=== PATIENT | female | born 1965 | race Caucasian/White ===

== ENCOUNTER 2024-12-06 12:42 | Inpatient (IN) | payer OTHER ==
[~2024-12-06] VITALS: Ht 157.5 cm; Wt 99.7 kg
[2024-12-06 01:00] VITALS: BP 122/70; PULSE 82; RESP 18; TEMP 98; O2SAT 96
--- NOTE | 2024-12-06 12:53 | ED.PDOC ---
HPI Comments 59 year old female MISTI presents to the ED with chief complaint of chest pain. EMS reports that the patient had started to feel some weakness at the store earlier today, so she had went home. EMS relays that once the patient arrived home, she began to experience sharp, intermittent, 10/10 chest pains with associated, shakiness, nausea, and vomiting. Patient states that she visited [facility] urgent [facility] for evaluation of her chest pain and that is when they called 911 to have the patient taken to the ED. EMS notes patient was at a HR of 138 on their EKG, BP was 106/83, and 98% O2 saturation on room air. Patient denies any SOB, dizziness, headache, numbness, blurred vision, or abdominal pain at this time. Time Seen by MD: 12:47 Reviewed Notes: Nurses Notes, Program Production Specialist Notes, Medications, Allergies Allergies: Coded Allergies: NO KNOWN ALLERGIES (Unverified , 12/06/24) Information Source: Patient, Emergency Med Personnel Mode of Arrival: EMS Severity: Moderate Timing: Hours Duration: Intermittent Prehospital treatment: 12 Lead EKG Location: Substernal Radiation: No Radiation Quality: Sharp Onset: At Rest Cardiac Risk Factors: Hyperlipidemia, HTN, Diabetes PE Risk Factors: None History of: None Associated Signs and Symptoms: N/V Past Medical History PAST MEDICAL HISTORY: DM, High Lipids, HTN Surgical History: Tonsillectomy 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: Denies all 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 ATTENDANT Hx Family History Family History: Reviewed,noncontributory to illness Social History Smoker: Cigarettes, Less Than 1 Pack/Day Alcohol: Denies ETOH Use Drugs: Denies Drug Use Lives In: Home Constitutional: reports: weakness; denies: chills, diaphoresis, fatigue, fever, malaise, sweats, others EENTM: denies: blurred vision, double vision, ear bleeding, ear discharge, ear drainage, ear pain, ear ringing, eye pain, eye redness, hearing loss, mouth pain, mouth swelling, nasal discharge, nose bleeding, nose congestion, nose pain, photophobia, tearing, throat pain, throat swelling, voice changes, others Respiratory: denies: cough, hemoptysis, orthopnea, SOB at rest, shortness of breath, SOB with excertion, stridor, wheezing, others Cardiovascular: reports: chest pain; denies: dizzy spells, diaphoresis, Dyspnea on exertion, edema, irregular heart beat, left arm pain, lightheadedness, palpitations, PND, syncope, others Gastrointestinal: reports: nausea, vomiting; denies: abdomen distended, abdominal pain, blood streaked bowels, constipated, diarrhea, dysphagia, difficulty swallowing, hematemesis, melena, poor appetite, poor fluid intake, rectal bleeding, rectal pain, others Genitourinary: denies: abnormal vagina bleeding, burning, dyspareunia, dysuria, flank pain, frequency, hematuria, incontinence, pain, , vagina discharge, urgency, others Neurological: denies: dizziness, fainting, headache, left sided numbness, left sided weakness, numbness, paresthesia, pre-existing deficit, right sided numbness, right sided weakness, seizure, speech problems, tingling, tremors, weakness, others Musculoskeletal: denies: back pain, gout, joint pain, joint swelling, muscle pain, muscle stiffness, neck pain, others Integumetry: denies: bruises, change in color, change in hair/nails, dryness, laceration, lesions, lumps, rash, wounds, others Allergic/Immunocompromised: denies: Difficulty Healing, Frequent Infections, Hives, Itching, others Hematologic/Lymphatic: denies: anemia, blood clots, easy bleeding, easy bruisin g, swollen glands, others Endocrine: denies: excessive hunger, excessive sweating, excessive thirst, excessive urination, flushing, intolerance to cold, intolerance to heat, unexplained weight gain, unexplained weight loss, others Psychiatric: denies: anxiety, bipolar disorder, depression, hopeless, panic disorder, schizophrenia, sleepless, suicidal, others All Other Systems: Reviewed and Negative Physical Exam General Appearance: Moderate Distress HEENT: Normal ENT Inspection, Pharynx Normal, TMs Normal Neck: Full Range of Motion, Non-Tender, Normal, Normal Inspection Respiratory: Chest Non-Tender, Lungs Clear, No Accessory Muscle Use, No Respiratory Distress, Normal Breath Sounds Cardiovascular: No Edema, No JVD, No Murmur, No Gallop, Normal Peripheral Pulses, Regular Rate/Rhythm Breast Exam: Deferred Gastrointestinal: Epigastric, No Organomegaly, No Pulsatile Mass, Normal Bowel Sounds, Soft, Tenderness Genitalia: Deferred Pelvic: Deferred Rectal: Deferred Extremities: No calf tenderness, Normal capillary refill, Normal inspection, Normal range of motion, Non-tender, No pedal edema Musculoskeletal : Apperance: Normal Neurologic: Alert, urban gardening specialist II-XII nml as Tested, No Motor Deficits, Normal Affect, Normal Mood, No Sensory Deficits Cerebellar Function: Normal Reflexes: Normal Skin: Dry, Normal Color, Warm Lymphatic: No Adenopathy EKG EKG : Pulse Rate (adult): 94 [place]: Normal Cardiac Rhythm: NSR Block: None ST: Nonsp Was a procedure done? Was a procedure done?: No CP Differential Dx Differential Diagnosis: Angina, SD, Pulmonary Embolus Differential Diagnosis: CHF Differential Diagnosis: Pericarditis X-Ray, Labs, Meds, VS Vital Signs Date Time Temp Pulse Resp B/P (MAP) Pulse Ox O2 Delivery O2 Flow Rate FiO2 12/06/24 17:24 90 18 118/74 12/06/24 17:08 93 16 118/74 (89) 97 12/06/24 16:40 94 12/06/24 15:47 98.1 95 15 138/79 (98) 96 98.1 12/06/24 15:14 94 12/06/24 14:17 95 Nasal Cannula* 4 36 12/06/24 14:13 113 20 138/79 (98) 96 12/06/24 14:13 113 20 96 Nasal Cannula* 2 28 12/06/24 14:00 76 18 134/79 12/06/24 13:30 109 20 138/79 12/06/24 13:22 109 20 138/79 12/06/24 13:14 120 12/06/24 13:00 113 22 153/91 12/06/24 12:56 98.2 115 22 106/83 (91) 98 98.2 12/06/24 12:45 118 Lab Test 12/06/24 14:42 12/06/24 13:38 12/06/24 13:30 Range/Units Troponin I High Sensitivity < 3 L 3 L </=34 ng/L Urine Color Yellow Yellow Urine Clarity Hazy H Clear Urine pH 6.5 5.0-9.0 Urine Specific [place] 1.043 H 1.001-1.035 Urine Protein 3+ H Negative Urine Ketones 1+ H Negative Urine Blood Negative Negative /uL Urine Nitrite Negative Negative Urine Bilirubin Negative Negative Urine Urobilinogen Normal Negative mg/dL Urine Leukocyte Esterase Negative Negative /uL Urine RBC 5 0 - 4 /hpf Urine Microscopic WBC 5 0-5 /HPF Urine Squamous Epithelial Cells Mod <5 /hpf Urine Bacteria Few H None Seen /hpf Urine Yeast (Budding) Occasional None Seen /hpf Urine Glucose 4+ H Normal mg/dL White Blood Count 10.0 4.4-10.8 10^3/uL Red Blood Count 5.91 H 4.0-5.20 10^6/uL Hemoglobin 17.5 H 12.2-16.2 g/dL Hematocrit 51.7 H 36.0-46.0 % Mean Corpuscular Volume 87.4 80.0-100.0 fL Mean Corpuscular Hemoglobin 29.6 28.0-32.0 pg Mean Corpuscular Hemoglobin Concent 33.8 32.0-36.0 g/dL Red Cell Distribution Width 16.7 H 11.8-14.3 % Platelet Count 249 140-450 10^3/uL Mean Platelet Volume 8.9 6.9-10.8 fL Neutrophils (%) (Auto) 75.5 37.0-80.0 % Lymphocytes (%) (Auto) 17.9 10.0-50.0 % Monocytes (%) (Auto) 5.9 0.0-12.0 % Eosinophils (%) (Auto) 0.4 0.0-7.0 % Basophils (%) (Auto) 0.3 0.0-2.0 % Neutrophils # (Auto) 7.6 1.6-8.6 10 ^3/uL Lymphocytes # (Auto) 1.8 0.4-5.4 10 ^3/uL Monocytes # (Auto) 0.6 0-1.3 10 ^3/uL Eosinophils # (Auto) 0 0-0.8 10 ^3/uL Basophils # (Auto) 0 0-0.2 10 ^3/uL Nucleated Red Blood Cells 0.1 % Sodium Level 134 L 136-145 mmol/L Potassium Level 4.1 3.5-5.1 mmol/L Chloride Level 104 98-107 mmol/L Carbon Dioxide Level 21 20-31 mmol/L Anion Gap 9 5-15 Blood Urea Nitrogen 14 9-23 mg/dL Creatinine 0.97 0.550-1.02 mg/dL Glomerular Filtration Rate Calc 67 >90 mL/min BUN/Creatinine Ratio 14.4 10.0-20.0 Serum Glucose 184 H 74-106 mg/dL Calcium Level 9.8 8.7-10.4 mg/dL Total Bilirubin 1.0 0.2-1.0 mg/dL Aspartate Amino Transferase (AST) 19 13-40 U/L Alanine Aminotransferase (ALT) 24 7-40 U/L Alkaline Phosphatase 124 H 46-116 U/L Total Protein 7.4 5.7-8.2 g/dL Albumin 5.1 H 3.2-4.8 g/dL Lipase 42 12-53 U/L Current Medications Medications (Trade) Dose Ordered Sig/Chapito Route Start Time Stop Time Status Last Admin Sodium Chloride 1,000 ml @ 1,000 mls/hr Q1H ONCE IVB 12/06/24 13:00 12/06/24 13:59 DC 12/06/24 13:00 Morphine Sulfate 4 mg ONCE ONCE IV 12/06/24 13:00 12/06/24 13:01 DC 12/06/24 13:00 Prochlorperazine Edisylate (Compazine Inj) 10 mg ONCE ONCE IV 12/06/24 13:00 12/06/24 13:01 DC 12/06/24 13:00 Pantoprazole Sodium (Protonix) 40 mg ONCE ONCE IV 12/06/24 13:00 12/06/24 13:01 DC 12/06/24 13:00 Hydromorphone HCl (Dilaudid Innjection) 1 mg ONCE ONCE IV 12/06/24 13:30 12/06/24 13:31 DC 12/06/24 13:22 Hydromorphone HCl (Dilaudid Injection) 1 mg ONCE ONCE IV 12/06/24 17:00 12/06/24 17:01 DC 12/06/24 17:24 TECHNIQUE: Multiple real-time sonographic images were obtained of the right upper quadrant. IMPRESSION: Hepatic steatosis and hepatomegaly. Gallbladder sludge is present. IV Hep-Lock was established The patient was given 1 L bolus of normal saline When the patient came in, she was in significant amount of pain. The patient was given morphine 4 mg IV push and Compazine 10 mg IV push. The patient was also given Protonix 40 mg IV push The patient states that the pain subsided somewhat but has now returned The patient was given Dilaudid 1 mg IV push We did contact [facility] and did go over the results with them The patient's CBC is within normal limits The chemistry panel is within normal limits They did state that the patient has been seen at their facility with episodes of pain in the past as well At this time, the patient will be admitted They did give us authorization to admit this patient with an authorization number of [id number] Images Reviewed?: Images reviewed and evaluated by me Time of 1ST Reevaluation: 17:39 Reevaluation 1ST: Unchanged Patient Education/Counseling: Diagnosis, Treatment, Prognosis Family Education/Counseling: No Family Present Departure 1 Departure Time of Disposition: 17:39 Impression: Primary Impression: Intractable abdominal pain Additional Impression: Gallbladder sludge Disposition: ADMITTED INPATIENT Admit to: Med Surg Condition: Fair Critical Care Note Critical Care Time?: No Stability Stability form required: Yes Unstable for transfer: ED Physician Assesment (Clinical assesment) Heart Score Heart Score: Heart Score Response (Comments) Value History Highly Suspicious 2 EKG Normal 0 Age 45-64 1 Risk Factors >3 or Hx ASHD 2 Troponin Normal limit 0 Total 5 I personally scribed for TARIQ DAMON MD ([email or web address]) on 12/06/24 at 12:53. Electronically submitted by Lorenzo Lawson ([email or web address]). I personally scribed for TARIQ DAMON MD ([email or web address]) on 12/06/24 at 14:58. Electronically submitted by Monster James ([email or web address]). TARIQ DAMON MD Dec 06, 2024 12:53
[2024-12-06] MEDS: PANTOPRAZOLE 40 MG/10 ML VIAL INJ IV ONE (13:00)
[2024-12-06] MEDS: SODIUM CHLORIDE 0.9% 1,000 ML IVB ONE (13:00)
[2024-12-06] MEDS: PROCHLORPERAZINE EDISYLATE 5 MG/ML 2ML VIAL IV ONE (13:00)
[2024-12-06] MEDS: MORPHINE SULFATE 4 MG/ML SYR/VIAL IV ONE (13:00)
[2024-12-06] MEDS: HYDROMORPHONE HCL 1 MG/ML INJ IV ONE ×2 (13:22→21:19)
[2024-12-06] MEDS: ceFAZolin 2 GM/D5W100ml 100 ML IV ONE (13:22)
[2024-12-06 14:00] LABS: Basophils # (auto) 0 10 ^3/uL (0-0.2); Basophils % (auto) 0.3 % (0.0-2.0); Eosinophils # (auto) 0 10 ^3/uL (0-0.8); Eosinophils % (auto) 0.4 % (0.0-7.0); Hematocrit 51.7 % (36.0-46.0); Hemoglobin 17.5 g/dL (12.2-16.2); Lymphocytes # (auto) 1.8 10 ^3/uL (0.4-5.4); Lymphocytes % (auto) 17.9 % (10.0-50.0); Mean Corpuscular Hemoglobin 29.6 pg (28.0-32.0); Mean Corpuscular Hgb Conc. 33.8 g/dL (32.0-36.0); Mean Corpuscular Volume 87.4 fL (80.0-100.0); Monocytes # (auto) 0.6 10 ^3/uL (0-1.3); Monocytes % (auto) 5.9 % (0.0-12.0); Neutrophils # (auto) 7.6 10 ^3/uL (1.6-8.6); Neutrophils % (auto) 75.5 % (37.0-80.0); Nucleated Red Blood Cells % 0.1 %; Platelet Count (auto) 249 10^3/uL (140-450); Red Blood Cells 5.91 10^6/uL (4.0-5.20); Red Cell Distribution Width 16.7 % (11.8-14.3)
[2024-12-06 14:03] LABS: Urine Bacteria FEW /hpf (None Seen); Urine Blood Negative /uL (Negative); Urine Budding Yeast OCCASIONAL /hpf (None Seen); Urine Color Yellow (Yellow); Urine Protein, UAD 3+ (Negative); Urine Specific Gravity 1.043 (1.001-1.035); Urine Squamous Epithelial Cell MOD /hpf (<5); Urine Urobilinogen Normal (Negative); Urine WBC 5 /HPF (0-5); Urine pH 6.5 (5.0-9.0)
[2024-12-06 14:04] LABS: Urine Clarity Hazy (Clear)
[2024-12-06 14:13] VITALS: PULSE 113; RESP 20; O2SAT 96
[2024-12-06 14:13] LABS: Alanine Aminotransferase 24 U/L (7-40); Albumin 5.1 g/dL (3.2-4.8); Alkaline Phosphatase 124 U/L (46-116); Anion Gap 9 (5-15); Aspartate Aminotransferase 19 U/L (13-40); BUN/Creatinine Ratio 14.4 (10.0-20.0); Blood Urea Nitrogen 14 mg/dL (9-23); Calcium 9.8 mg/dL (8.7-10.4); Carbon Dioxide 21 mmol/L (20-31); Chloride 104 mmol/L (98-107); Glucose 184 mg/dL (74-106); Lipase 42 U/L (12-53); Potassium 4.1 mmol/L (3.5-5.1); Sodium 134 mmol/L (136-145); Total Protein 7.4 g/dL (5.7-8.2)
--- NOTE | 2024-12-06 14:41 | DVH ---
INDICATION: pain TECHNIQUE: Multiple real-time sonographic images were obtained of the right upper quadrant. COMPARISON: None FINDINGS: The liver demonstrates increased echotexture without focal mass lesions. The liver measure s 17.3 cm. There is no intrahepatic or extrahepatic ductal dilatation. The common duct measures 0.5 cm. Gallbladder sludge is present. The gallbladder wall measures 0.2 cm and is within normal limits. The right kidney measures 13.1 cm. The right kidney is normal in contour, size, and shape. The echoge nicity is normal. There is no hydronephrosis. The pancreas is not well visualized due to overlying bowel gas. IMPRESSION: Hepatic steatosis and hepatomegaly. Gallbladder sludge is present.
[2024-12-06] MEDS: HYDROmorphone HCL 2 MG/ML VL/or syr IV ONE (17:24)
--- NOTE | 2024-12-06 19:15 | ECG ---
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
--- NOTE | 2024-12-06 19:16 | ECG ---
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
[2024-12-06 19:45] VITALS: PULSE 90; RESP 17; O2SAT 95
[2024-12-06] MEDS: SODIUM CHLORIDE 0.9% 1,000 ML IV ONE (22:30)
[2024-12-06] MEDS ORDERED: ONDANSETRON HCL 4 MG/2 ML VIAL IV PRN (22:30)
--- NOTE | 2024-12-06 22:38 | DVHHPRES ---
History of Present Illness Resident Creating Document: WOJCIECH AVILEZ RESIDENT Reason for Visit: EPIGASTRIC PAIN History of Present Illness This is a 59 year old female presented to the ED via EMS with a chief complaints of Chest pain. According to the patient, her symptoms actually started whilst grocery shopping today. Whilst at the supermarket, patient started feeling weakness and felt flashed in her face so she went home. At home, she began to experience sharp, intermittent pain localized to the epigastrium (but she called it chest pain), rated 10/10. Pain was associated with shaking, nausea, and vomiting. Patient initially reported to [facility] urgent [facility] from there she was sent to the [facility] ED for further evaluation and management. On arrival to the ED, her initial vitals were HR of 138, BP was 106/83, and 98% O2 saturation on room air, and 12 lead EKG shows sinus tachycardia, probable left atrial enlargement, Incomplete right bundle branch block. She had received some morphine by the ED physician. At the time of my interrogation, patient denied, SOB, dizziness, headache, numbness, blurred vision, or abdominal pain at this time. Past Medical history: Diabetes, hypertension, GERD, and hyperlipidemia Past surgical history: Ovarian cyst removal and total hysterectomy and tonsillectomy Social history: Patient lives at home does not drink and does not smoke family history: Noncontributory Medications: Patient is currently on Ozempic (on for 5 months),lisinopril, Prilosec and atorvastatin Past Medical History See HPI Past Surgical History See HPI Smoke: No Review of Systems Review of Systems Constitutional: Denies fever no chills no feeling of malaise HEENT: Denies headache, ear pain, ear discharges, conjunctivitis, nasal discharge throat pain Cardiovascular: Denies chest pain, palpitation, orthopnea, PND, or pedal edema Respiratory: Denies shortness of breath, cough cough, sputum production, hemoptysis, GI: Denies abdominal pain, nausea, vomiting, diarrhea, hematemesis, hematochezia, : Denies frequency, urgency, hematuria, Endocrine: Denies unintentional weight gain or weight loss, feeling of hot flashes, [place]: Denies easy bruising, bleeding disorders, epistaxis Musculoskeletal: Denies joint pains, muscle aches Psych: No evidence of depression, dajuan, suicidal ideation Allergies: Coded Allergies: NO KNOWN ALLERGIES (Unverified , 12/06/24) Medications Current Medications Medications Dose Ordered Sig/Chapito Route Start Time Stop Time Status Last Admin Dose Admin Ondansetron HCl 4 mg Q4HP PRN IV 12/06/24 22:30 UNV Enoxaparin Sodium 40 mg DAILY SC 12/07/24 10:00 UNV Exam Vital Signs Vital Signs Date Time Temp Pulse Resp B/P (MAP) Pulse Ox O2 Delivery O2 Flow Rate FiO2 12/06/24 21:44 93 18 129/80 12/06/24 19:45 98.6 95 98.6 12/06/24 19:45 Nasal Cannula* 2 28 Exam General Appearance: Alert, Oriented X3, Cooperative, No acute distress, Flashed ( red) in the face and neck HEENT: Atraumatic, PERRLA, EOMI, Mucous membrane moist/pink Respiratory: Clear to auscultation, Normal air movement Cardiovascular: Regular rate, Normal S1, Normal S2, No murmurs, no chest wall tenderness Abdominal: NO distention, no tenderness, bowel sounds present, no scars noted, Romo's positive in deep palpation Extremities: No clubbing, No cyanosis, No edema, Normal pulses, No tenderness/swelling Skin: No rashes, No breakdown, No significant lesion Neuro: Normal gait, Normal speech, Strength at 5/5 X4 ext, Normal tone, Sensation intact, Cranial nerves 3-12 NL, Reflexes 2+ Psych/Mental Status: Mental status NL, Mood NL Labs/Xrays Labs Test 12/06/24 18:42 12/06/24 14:42 12/06/24 13:38 12/06/24 13:30 Range/Units POC Glucose 104 70-106 mg/dl Troponin I High Sensitivity < 3 L </=34 ng/L Urine Color Yellow Yellow Urine Clarity Hazy H Clear Urine pH 6.5 5.0-9.0 Urine Specific [place] 1.043 H 1.001-1.035 Urine Protein 3+ H Negative Urine Ketones 1+ H Negative Urine Blood Negative Negative /uL Urine Nitrite Negative Negative Urine Bilirubin Negative Negative Urine Urobilinogen Normal Negative mg/dL Urine Leukocyte Esterase Negative Negative /uL Urine RBC 5 0 - 4 /hpf Urine Microscopic WBC 5 0-5 /HPF Urine Squamous Epithelial Cells Mod <5 /hpf Urine Bacteria Few H None Seen /hpf Urine Yeast (Budding) Occasional None Seen /hpf Urine Glucose 4+ H Normal mg/dL White Blood Count 10.0 4.4-10.8 10^3/uL Red Blood Count 5.91 H 4.0-5.20 10^6/uL Hemoglobin 17.5 H 12.2-16.2 g/dL Hematocrit 51.7 H 36.0-46.0 % Mean Corpuscular Volume 87.4 80.0-100.0 fL Mean Corpuscular Hemoglobin 29.6 28.0-32.0 pg Mean Corpuscular Hemoglobin Concent 33.8 32.0-36.0 g/dL Red Cell Distribution Width 16.7 H 11.8-14.3 % Platelet Count 249 140-450 10^3/uL Mean Platelet Volume 8.9 6.9-10.8 fL Neutrophils (%) (Auto) 75.5 37.0-80.0 % Lymphocytes (%) (Auto) 17.9 10.0-50.0 % Monocytes (%) (Auto) 5.9 0.0-12.0 % Eosinophils (%) (Auto) 0.4 0.0-7.0 % Basophils (%) (Auto) 0.3 0.0-2.0 % Neutrophils # (Auto) 7.6 1.6-8.6 10 ^3/uL Lymphocytes # (Auto) 1.8 0.4-5.4 10 ^3/uL Monocytes # (Auto) 0.6 0-1.3 10 ^3/uL Eosinophils # (Auto) 0 0-0.8 10 ^3/uL Basophils # (Auto) 0 0-0.2 10 ^3/uL Nucleated Red Blood Cells 0.1 % Sodium Level 134 L 136-145 mmol/L Potassium Level 4.1 3.5-5.1 mmol/L Chloride Level 104 98-107 mmol/L Carbon Dioxide Level 21 20-31 mmol/L Anion Gap 9 5-15 Blood Urea Nitrogen 14 9-23 mg/dL Creatinine 0.97 0.550-1.02 mg/dL Glomerular Filtration Rate Calc 67 >90 mL/min BUN/Creatinine Ratio 14.4 10.0-20.0 Serum Glucose 184 H 74-106 mg/dL Calcium Level 9.8 8.7-10.4 mg/dL Total Bilirubin 1.0 0.2-1.0 mg/dL Aspartate Amino Transferase (AST) 19 13-40 U/L Alanine Aminotransferase (ALT) 24 7-40 U/L Alkaline Phosphatase 124 H 46-116 U/L Total Protein 7.4 5.7-8.2 g/dL Albumin 5.1 H 3.2-4.8 g/dL Lipase 42 12-53 U/L Assessment/Plan Assessment/Plan Assessment Possible Acute Cholecystitis --> RUQ --> Nausea and vomiting --> Gallbladder US: Gallbladder sludge is present -->HIDA SCAN -->NPO, pain management and fluid --> Surgery consult Possible Gastritis --> History of GERD --> Epigastric pain, --> Nausea and vomiting --> Protonix Diabetes Mellitus --> Ozampic for the past 5 months --> lost 35lbs since being on it Hypertension --> Lisinopril Polysubstance use --> UDS positive for amphetamine and opiates Hepatic steatosis and hepatomegaly. Obesity grade II, BMI 35.7 Goal of care discussed for more than 25 minutes mid: Full code Case and plan discussed with Dr. Chinedu Richter discussed with: Patient My Orders Orders - WOJCIECH AVILEZ RESIDENT Procedure Category Date Status Time Admit ADMIT 12/06/24 Transmitted 22:23 Code Status CODE 12/06/24 Transmitted 22:23 Vital Signs VILMA 12/06/24 In Process 22:23 Review Orders With VILMA 12/06/24 In Process Adm. 22:23 Notify Of Changes VILMA 12/06/24 In Process From Base 22:23 Advance Directive VILMA 12/06/24 In Process 22:23 Patient Condition ORDERS 12/06/24 Transmitted 22:23 Allergies VILMA 12/06/24 In Process 22:23 Ondansetron Hcl PHA 12/06/24 Logged (Zofran) 22:30 Drug Screen LAB 12/06/24 Logged 22:23 Enoxaparin Sodium PHA 12/07/24 Logged (Lovenox) 10:00 Notify Of Changes VILMA 12/06/24 In Process From Base 22:23 Nm Hida Scan NM 12/06/24 Logged 22:23 Basic Metabolic Panel LAB 12/07/24 Verified 04:00 Complete Blood Count LAB 12/07/24 Verified 04:00 Npo (Nothing By DIET 12/07/24 Transmitted Mouth) Diet Breakfast Ketorolac Injection PHA 12/07/24 Logged (Toradol Injection) 06:00 Sodium Chloride 0.9% PHA 12/06/24 Logged 22:30 WOJCIECH AVILEZ RESIDENT Dec 06, 2024 22:38
[2024-12-06] MEDS: KETOROLAC TROMETH 30 MG/ML 1ML VIAL IV ONE (22:45)
[2024-12-06 23:06] LABS: Amphetamine Screen, Urine Pos (NEGATIVE)
[2024-12-06 23:07] LABS: Barbiturate Scree,Urine Neg (NEGATIVE); Benzodiazephine Screen, Urine Neg (NEGATIVE); Cannabinoid Screen, Urine Neg (NEGATIVE); Cocaine Screen, Urine Neg (NEGATIVE); Opiate Scree,Urine Pos (NEGATIVE); Phencyclidine Screen, Urine Neg (NEGATIVE)
[2024-12-07] VITALS (8 sets, daily range): BP systolic 105–146; BP diastolic 57–80; PULSE 80–90; RESP 16–20; TEMP 97.4–97.9; O2SAT 91–98
[2024-12-07] MEDS ORDERED: SEMA4INJ SC (00:50)
[2024-12-07] MEDS ORDERED: TRAZ-227 PO (00:50)
[2024-12-07] MEDS ORDERED: LISI20TA56 PO (00:50)
[2024-12-07] MEDS ORDERED: POTA-211 PO (00:50)
[2024-12-07] MEDS ORDERED: METF-1145 PO (00:50)
[2024-12-07] MEDS ORDERED: EMPA1TAB3 PO (00:50)
[2024-12-07] MEDS ORDERED: INSU100S4 SC (00:52)
[2024-12-07] MEDS: MORPHINE SULFATE INJ 2 MG/ml SYRG IV PRN (01:36)
[2024-12-07 06:19] LABS: Basophils # (auto) 0 10 ^3/uL (0-0.2); Basophils % (auto) 0.1 % (0.0-2.0); Eosinophils # (auto) 0.1 10 ^3/uL (0-0.8); Hematocrit 43.1 % (36.0-46.0); Hemoglobin 14.8 g/dL (12.2-16.2); Lymphocytes # (auto) 2.3 10 ^3/uL (0.4-5.4); Lymphocytes % (auto) 22.8 % (10.0-50.0); Mean Corpuscular Hemoglobin 30.1 pg (28.0-32.0); Mean Corpuscular Hgb Conc. 34.4 g/dL (32.0-36.0); Mean Corpuscular Volume 87.7 fL (80.0-100.0); Monocytes # (auto) 0.7 10 ^3/uL (0-1.3); Monocytes % (auto) 6.8 % (0.0-12.0); Neutrophils % (auto) 69.3 % (37.0-80.0); Platelet Count (auto) 206 10^3/uL (140-450); Red Blood Cells 4.91 10^6/uL (4.0-5.20); Red Cell Distribution Width 16.1 % (11.8-14.3); White Blood Cell 10.1 10^3/uL (4.4-10.8)
[2024-12-07 06:36] LABS: Chloride 104 mmol/L (98-107); Potassium 3.8 mmol/L (3.5-5.1)
[2024-12-07 06:37] LABS: Anion Gap 9 (5-15); Carbon Dioxide 23 mmol/L (20-31)
[2024-12-07 06:38] LABS: Calcium 9.1 mg/dL (8.7-10.4)
[2024-12-07 06:42] LABS: Blood Urea Nitrogen 20 mg/dL (9-23)
[2024-12-07 06:56] LABS: Glucose 173 mg/dL (74-106); Sodium 136 mmol/L (136-145)
[2024-12-07] MEDS: ENOXAPARIN SOD 40 MG/0.4 ML SYRINGE SC SCH (10:00)
--- NOTE | 2024-12-07 11:38 | DVHINCON2 ---
Consultation - Surgical Date Seen: Dec 07, 2024 Referring Physician Reason for Consultation abd pain History of Present Illness History of Present Illness 59F w PMHx DM, morbid obesity and GERD who presented to ER after developing epigastric/CP. She was at the store this am and began to feel flushed and light headed. She returned home and developed epigastric abd pain and nausea. She endorses 1 episode of NB/NB emesis after developing abd pain. Reports flatus and had BM yesterday. Denies any postprandial abd pain. No recent illnesses, no sick contacts, no recent travel. Past Medical/Surgical History Past Medical/Surgical History DM, morbid obesity, GERD Family and Social History Family and Social History DENIES A/D/T; TOX SCREEN +METH AND OPIOIDS Allergies and medications Allergies: Coded Allergies: NO KNOWN ALLERGIES (Unverified , 12/06/24) Home Meds Reported Medications Insulin Glargine-Yfgn (Insulin Glargine) 100 Unit/Ml Madhuri, 63 UNITS SC QAM 12/07/24 Empagliflozin (Jardiance) 25 Mg Tab, 0.5 TAB PO DAILY 12/07/24 Potassium Chloride (Klor-Con 10) 10 Meq Tab, 10 MEQ PO DAILY 12/07/24 Semaglutide (Ozempic) 4 Mg/3 Ml Inj, 1 MG SC QWEEKLY 12/07/24 Metformin Hydrochloride (Metformin Hcl Er) 500 Mg Tab, 1 TAB PO DAILY 12/07/24 Trazodone Hcl (Trazodone Hcl) 50 Mg Tab, 1-3 TAB PO QHSP PRN for UNABLE TO SLEEP 12/07/24 Lisinopril (Lisinopril) 20 Mg Tab, 20 MG PO DAILY, TAB 12/07/24 Review of systems Review of Systems: GI:Abnormal (+gerd, constipation, abd pain) Examination Vital signs Vital Signs Date Time Temp Pulse Resp B/P (MAP) Pulse Ox O2 Delivery O2 Flow Rate FiO2 12/07/24 10:09 80 16 146/68 12/07/24 08:00 96 Room Air* 0 21 12/07/24 05:00 97.9 97.9 Medications Current Medications Medications (Trade) Dose Ordered Sig/Chapito Route PRN Reason Start Time Stop Time Status Last Admin Ondansetron HCl (Zofran) 4 mg Q4HP PRN IV NAUSEA / VOMITING 12/06/24 22:30 Enoxaparin Sodium (Lovenox) 40 mg DAILY SC 12/07/24 10:00 Morphine Sulfate 2 mg Q4HPRN PRN IV MODERATE PAIN (4-6 PAIN SCALE) 12/07/24 01:15 12/07/24 10:09 Laboratory Labs Test 12/07/24 05:36 12/07/24 00:10 12/06/24 18:42 12/06/24 13:38 Range/Units White Blood Count 10.1 4.4-10.8 10^3/uL Red Blood Count 4.91 4.0-5.20 10^6/uL Hemoglobin 14.8 # 12.2-16.2 g/dL Hematocrit 43.1 # 36.0-46.0 % Mean Corpuscular Volume 87.7 80.0-100.0 fL Mean Corpuscular Hemoglobin 30.1 28.0-32.0 pg Mean Corpuscular Hemoglobin Concent 34.4 32.0-36.0 g/dL Red Cell Distribution Width 16.1 H 11.8-14.3 % Platelet Count 206 140-450 10^3/uL Mean Platelet Volume 8.8 6.9-10.8 fL Neutrophils (%) (Auto) 69.3 37.0-80.0 % Lymphocytes (%) (Auto) 22.8 10.0-50.0 % Monocytes (%) (Auto) 6.8 0.0-12.0 % Eosinophils (%) (Auto) 1.0 0.0-7.0 % Basophils (%) (Auto) 0.1 0.0-2.0 % Neutrophils # (Auto) 7.0 1.6-8.6 10 ^3/uL Lymphocytes # (Auto) 2.3 0.4-5.4 10 ^3/uL Monocytes # (Auto) 0.7 0-1.3 10 ^3/uL Eosinophils # (Auto) 0.1 0-0.8 10 ^3/uL Basophils # (Auto) 0 0-0.2 10 ^3/uL Nucleated Red Blood Cells 0.0 % Sodium Level 136 136-145 mmol/L Potassium Level 3.8 3.5-5.1 mmol/L Chloride Level 104 98-107 mmol/L Carbon Dioxide Level 23 20-31 mmol/L Anion Gap 9 5-15 Blood Urea Nitrogen 20 9-23 mg/dL Creatinine 0.91 0.550-1.02 mg/dL Glomerular Filtration Rate Calc 72 >90 mL/min BUN/Creatinine Ratio 22.0 H 10.0-20.0 Serum Glucose 173 H 74-106 mg/dL Calcium Level 9.1 8.7-10.4 mg/dL Troponin I High Sensitivity 3 L </=34 ng/L POC Glucose 104 70-106 mg/dl Urine Color Yellow Yellow Urine Clarity Hazy H Clear Urine pH 6.5 5.0-9.0 Urine Specific [place] 1.043 H 1.001-1.035 Urine Protein 3+ H Negative Urine Ketones 1+ H Negative Urine Blood Negative Negative /uL Urine Nitrite Negative Negative Urine Bilirubin Negative Negative Urine Urobilinogen Normal Negative mg/dL Urine Leukocyte Esterase Negative Negative /uL Urine RBC 5 0 - 4 /hpf Urine Microscopic WBC 5 0-5 /HPF Urine Squamous Epithelial Cells Mod <5 /hpf Urine Bacteria Few H None Seen /hpf Urine Yeast (Budding) Occasional None Seen /hpf Urine Glucose 4+ H Normal mg/dL Urine Opiates Screen Pos NEGATIVE Urine Fentanyl Screen Neg NEGATIVE Urine Barbiturates Screen Neg NEGATIVE Urine Phencyclidine Screen Neg NEGATIVE Urine Amphetamines Screen Pos NEGATIVE Urine Benzodiazepines Screen Neg NEGATIVE Urine Cocaine Screen Neg NEGATIVE Urine Cannabinoids Screen Neg NEGATIVE Test 12/06/24 13:30 Range/Units Total Bilirubin 1.0 0.2-1.0 mg/dL Aspartate Amino Transferase (AST) 19 13-40 U/L Alanine Aminotransferase (ALT) 24 7-40 U/L Alkaline Phosphatase 124 H 46-116 U/L Total Protein 7.4 5.7-8.2 g/dL Albumin 5.1 H 3.2-4.8 g/dL Lipase 42 12-53 U/L Examination: ABDOMEN:Abnormal (soft, ND, mild epigastric tenderness, no donte/guarding) Problem List/Assessment/Plan Problems: (1) Polysubstance abuse (2) Gallbladder sludge (3) Intractable abdominal pain Assessment and Plan 59F w morbid obesity w BMI 38 who presented w several hours of epigastric abd pain and nausea. No history of biliary colic, no postprandial abd pain No f/c, no leukocytosis, Tb and LFTs wnl, lipase wnl, RUQ shows trace sludge but no GB wall thickening, no perichole fluid, no cholelithiasis, CBD wnl - GERD vs Ozempic related GI side effects no clinical findings suggestive of acute cholecystitis or symptomatic cholelithi asis Hx and Sxs suggest gastritis vs GI side effects of Ozempic no surgical interventions indicated from surgery stand point ok to resume PO recommend polysubstance abuse counseling PPI Maalox prn VTE ppx, pt refusing chemical ppx this morning - risks explained Plan discussed with Plan discussed with: Patient Visit Coding Surgery Date of Service if different f: Dec 07, 2024 Billing Provider: ROSMERY YOUNG MD Surgery Visit Codes: [id number] - INP CONSULT <55 MIN ROSMERY YOUNG MD Dec 07, 2024 11:38
[2024-12-07] MEDS ORDERED: GASTROGRAFIN 30 ML SOL ONE (14:28)
--- NOTE | 2024-12-07 14:44 | DVHINCON2 ---
Date of service: Dec 07, 2024 Referring Physician Darren Reason for Consultation Abdominal pain History of Present Illness The patient is a 59-year-old female with diabetes, hypertension, hyperlipidemia, admitted with abdominal pain, acute, in the epigastric region and right upper quadrant. Workup shows mildly elevated alkaline phosphatase and biliary sludge. HIDA scan is ordered and is pending. Patient has history of GERD. She takes medication for GERD. She is also on Ozempic. She denies any hematemesis, melena, diarrhea, or GI bleeding. Past Medical History As above History of polysubstance abuse Past Surgical History Hysterectomy Tonsillectomy Ovarian cyst Family History: Patient reports no known family medical history. Social History History of polysubstance abuse Allergies: Coded Allergies: NO KNOWN ALLERGIES (Unverified , 12/06/24) Home Meds Reported Medications Insulin Glargine-Yfgn (Insulin Glargine) 100 Unit/Ml Madhuri, 63 UNITS SC QAM 12/07/24 Empagliflozin (Jardiance) 25 Mg Tab, 0.5 TAB PO DAILY 12/07/24 Potassium Chloride (Klor-Con 10) 10 Meq Tab, 10 MEQ PO DAILY 12/07/24 Semaglutide (Ozempic) 4 Mg/3 Ml Inj, 1 MG SC QWEEKLY 12/07/24 Metformin Hydrochloride (Metformin Hcl Er) 500 Mg Tab, 1 TAB PO DAILY 12/07/24 Trazodone Hcl (Trazodone Hcl) 50 Mg Tab, 1-3 TAB PO QHSP PRN for UNABLE TO SLEEP 12/07/24 Lisinopril (Lisinopril) 20 Mg Tab, 20 MG PO DAILY, TAB 12/07/24 Current Medications Current Medications Medications (Trade) Dose Ordered Sig/Chapito Route PRN Reason Start Time Stop Time Status Last Admin Ondansetron HCl (Zofran) 4 mg Q4HP PRN IV NAUSEA / VOMITING 12/06/24 22:30 Enoxaparin Sodium (Lovenox) 40 mg DAILY SC 12/07/24 10:00 Morphine Sulfate 2 mg Q4HPRN PRN IV MODERATE PAIN (4-6 PAIN SCALE) 12/07/24 01:15 12/07/24 10:09 Al Hydrox/Mg Hydrox/Simethicone (Maalox Plus) 30 ml Q6HP PRN PO FOR STOMACH DISTRESS 12/07/24 12:15 Review of Systems Review of systems negative other than HPI Vital Signs Vital Signs Date Time Temp Pulse Resp B/P (MAP) Pulse Ox O2 Delivery O2 Flow Rate FiO2 12/07/24 13:00 97.9 90 20 128/57 (80) 96 97.9 12/07/24 08:00 Room Air* 0 21 Physical Exam General: Alert and oriented x4 no distress HEENT: NC/AT EOMI PERRLA O/P clear Regular rate and rhythm Abdomen: Soft mild right upper quadrant tenderness to palpation Extremity: No clubbing cyanosis or edema Labs/Diagnostic Data Labs Test 12/07/24 05:36 12/07/24 00:10 12/06/24 18:42 12/06/24 13:38 Range/Units White Blood Count 10.1 4.4-10.8 10^3/uL Red Blood Count 4.91 4.0-5.20 10^6/uL Hemoglobin 14.8 # 12.2-16.2 g/dL Hematocrit 43.1 # 36.0-46.0 % Mean Corpuscular Volume 87.7 80.0-100.0 fL Mean Corpuscular Hemoglobin 30.1 28.0-32.0 pg Mean Corpuscular Hemoglobin Concent 34.4 32.0-36.0 g/dL Red Cell Distribution Width 16.1 H 11.8-14.3 % Platelet Count 206 140-450 10^3/uL Mean Platelet Volume 8.8 6.9-10.8 fL Neutrophils (%) (Auto) 69.3 37.0-80.0 % Lymphocytes (%) (Auto) 22.8 10.0-50.0 % Monocytes (%) (Auto) 6.8 0.0-12.0 % Eosinophils (%) (Auto) 1.0 0.0-7.0 % Basophils (%) (Auto) 0.1 0.0-2.0 % Neutrophils # (Auto) 7.0 1.6-8.6 10 ^3/uL Lymphocytes # (Auto) 2.3 0.4-5.4 10 ^3/uL Monocytes # (Auto) 0.7 0-1.3 10 ^3/uL Eosinophils # (Auto) 0.1 0-0.8 10 ^3/uL Basophils # (Auto) 0 0-0.2 10 ^3/uL Nucleated Red Blood Cells 0.0 % Sodium Level 136 136-145 mmol/L Potassium Level 3.8 3.5-5.1 mmol/L Chloride Level 104 98-107 mmol/L Carbon Dioxide Level 23 20-31 mmol/L Anion Gap 9 5-15 Blood Urea Nitrogen 20 9-23 mg/dL Creatinine 0.91 0.550-1.02 mg/dL Glomerular Filtration Rate Calc 72 >90 mL/min BUN/Creatinine Ratio 22.0 H 10.0-20.0 Serum Glucose 173 H 74-106 mg/dL Calcium Level 9.1 8.7-10.4 mg/dL Troponin I High Sensitivity 3 L </=34 ng/L POC Glucose 104 70-106 mg/dl Urine Color Yellow Yellow Urine Clarity Hazy H Clear Urine pH 6.5 5.0-9.0 Urine Specific [place] 1.043 H 1.001-1.035 Urine Protein 3+ H Negative Urine Ketones 1+ H Negative Urine Blood Negative Negative /uL Urine Nitrite Negative Negative Urine Bilirubin Negative Negative Urine Urobilinogen Normal Negative mg/dL Urine Leukocyte Esterase Negative Negative /uL Urine RBC 5 0 - 4 /hpf Urine Microscopic WBC 5 0-5 /HPF Urine Squamous Epithelial Cells Mod <5 /hpf Urine Bacteria Few H None Seen /hpf Urine Yeast (Budding) Occasional None Seen /hpf Urine Glucose 4+ H Normal mg/dL Urine Opiates Screen Pos NEGATIVE Urine Fentanyl Screen Neg NEGATIVE Urine Barbiturates Screen Neg NEGATIVE Urine Phencyclidine Screen Neg NEGATIVE Urine Amphetamines Screen Pos NEGATIVE Urine Benzodiazepines Screen Neg NEGATIVE Urine Cocaine Screen Neg NEGATIVE Urine Cannabinoids Screen Neg NEGATIVE Test 12/06/24 13:30 Range/Units Total Bilirubin 1.0 0.2-1.0 mg/dL Aspartate Amino Transferase (AST) 19 13-40 U/L Alanine Aminotransferase (ALT) 24 7-40 U/L Alkaline Phosphatase 124 H 46-116 U/L Total Protein 7.4 5.7-8.2 g/dL Albumin 5.1 H 3.2-4.8 g/dL Lipase 42 12-53 U/L Assessment Abdominal pain Possible acute cholecystitis History of GERD Problems(with codes): (1) Obesity, morbid (2) Intractable abdominal pain (3) Gallbladder sludge (4) Polysubstance abuse Plan/Recommendation 1. Follow up with HIDA scan 2. Pain control 3. Clear liquid diet as tolerated 4. Surgical consultation 5. We will follow 6. Anti-reflux precautions and proton pump inhibitor Plan discussed with: Patient STEF TOLENTINO MD Dec 07, 2024 14:44
[2024-12-07] MEDS: MAALOX PLUS or MAALOX 30 ML PO PRN (14:57)
--- NOTE | 2024-12-07 15:28 | DVHPN2 ---
Subjective Still right upper quadrant and right flank pain Reviewed: Care Plan, H&P, Labs, Medications, Previous Orders, Radiology Changes from previous H/P or p: No Changes Objective Vitals Vital Signs Date Time Temp Pulse Resp B/P (MAP) Pulse Ox O2 Delivery O2 Flow Rate FiO2 12/07/24 14:57 90 20 128/57 12/07/24 13:00 97.9 96 97.9 12/07/24 08:00 Room Air* 0 21 Intake/Output Intake and Output 12/07/24 07:00 Intake Total 0 ml Balance 0 ml Intake Oral 0 ml # Voids 3 General Appearance: Alert, Oriented X3, Cooperative, No acute distress HEENT: Atraumatic Lungs: Clear to auscultation Cardiovascular: Regular rate Abdomen: Other (Positive tenderness in the right upper quadrant and epigastric and right flank areas) Medications Current Medications Medications Dose Ordered Sig/Chapito Route Start Time Stop Time Status Last Admin Dose Admin Ondansetron HCl 4 mg Q4HP PRN IV 12/06/24 22:30 Enoxaparin Sodium 40 mg DAILY SC 12/07/24 10:00 Morphine Sulfate 2 mg Q4HPRN PRN IV 12/07/24 01:15 12/07/24 14:57 2 MG Al Hydrox/Mg Hydrox/Simethicone 30 ml Q6HP PRN PO 12/07/24 12:15 12/07/24 14:57 30 ML Laboratory Results Laboratory Tests 12/07/24 05:36 Chemistry Test 12/07/24 05:36 Calcium Level 9.1 mg/dL (8.7-10.4) HgA1c, TSH Test 12/07/24 05:36 Hemoglobin A1c Pending Urinalysis Test 12/06/24 13:38 Urine Color Yellow (Yellow) Urine Clarity Hazy (Clear) H Urine pH 6.5 (5.0-9.0) Urine Specific [place] 1.043 (1.001-1.035) Urine Protein 3+ (Negative) H Urine Ketones 1+ (Negative) H Urine Blood Negative /uL (Negative) Urine Nitrite Negative (Negative) Urine Bilirubin Negative (Negative) Urine Urobilinogen Normal mg/dL (Negative) Urine Leukocyte Esterase Negative /uL (Negative) Urine RBC 5 /hpf (0 - 4) Urine Microscopic WBC 5 /HPF (0-5) Urine Squamous Epithelial Cells Mod /hpf (<5) Urine Bacteria Few /hpf (None Seen) H Urine Yeast (Budding) Occasional /hpf (None Urine Glucose 4+ mg/dL (Normal) H Assessment/Plan Assessment/Plan Abdominal pain/epigastric/right upper quadrant and right flank areas Incomplete right bundle-branch block Obesity Hepatic steatosis Gallbladder sludge Diabetes Hypertension On Ozempic Positive for amphetamine and opiates Plan: We will obtain abdominal pelvic CT with IV and p.o. contrast. NPO until then. Further plan per orders Unstable for transfer at this time Plan discussed with: Patient My Orders Orders - GIGI DIAS MD Procedure Category Date Status Time Ct Abd Pelvis W CT 12/07/24 Logged Con-Oral & Iv 14:19 Date of Service: Dec 07, 2024 Billing Provider: GIGI DIAS MD Common Visit Codes: [id number] INP/OBS CARE(HIGH) GIGI DIAS MD Dec 07, 2024 15:28
[2024-12-07] MEDS: SODIUM CHLORIDE 0.9% 1,000 ML IV SCH (16:08)
[2024-12-07] MEDS: PANTOPRAZOLE 40 MG/10 ML VIAL INJ IV ONE (16:09)
[2024-12-07] MEDS ORDERED: IOHEXOL 300 MG/ML 100ML BOTTLE IJ ONE (16:24)
--- NOTE | 2024-12-07 17:03 | DVH ---
Exam: CT CT ABD PELVIS W CON-ORAL IV History: Abdominal Pain Comparison Study: Right upper quadrant ultrasound 12/06/2024 TECHNIQUE: Multidetector CT of the abdomen and pelvis with IV contrast. Axial, coronal and sagittal m ultiplanar reformats were obtained from the axial data set by the technologist. Radiation Dose Information: CT Dose: CTDI volume is 19.17 mGy. Dose-length product is 903.17 mGy*cm FINDINGS: Bibasilar atelectasis. Partially visualized heart is unremarkable. Hepatomegaly with no focal hepatic lesions. Spleen, gallbladder, pancreas and adrenal glands unremark able. 2.1 cm left renal cyst with 1.9 cm right renal cyst and additional subcentimeter hypodense right jatinder l lesion that is too small to characterize. No nephrosis or renal calculi bilaterally. Bilateral ure ters and urinary bladder are unremarkable. Status post hysterectomy. Mild gastric wall thickening which is most likely from inadequate distension. Small bowel loops are c ontrast filled and unremarkable. Appendix measures up to 8 mm without adjacent inflammatory reaction. Large amount of fecal material within the ascending and transverse colons. Small amount of fecal ma terial within the remainder of the colon. Mild distal rectal wall thickening. No evidence of intraperitoneal free air or free fluid. No evidence of aortic aneurysm or dissection. No significant lymphadenopathy. Small to moderate size fat containing periumbilical hernia additional small fat containing infraumbil ical hernia. The soft tissues unremarkable. No destructive osseous lesions noted. IMPRESSION: Mild distal rectal wall thickening which may be due to inadequate distention /proctitis. Appendix measures up to 8 mm without adjacent inflammatory reaction. Early acute appendicitis can not be excluded. Mild hepatomegaly. Bilateral renal cysts with additional subcentimeter hypodense right renal lesion that is too small to characterize. Sigmoid diverticulosis without diverticulitis. Small to moderate size fat containing umbilical hernia with small sized fat containing infraumbilical hernia.
[2024-12-07] MEDS: traZODone HCL 50 MG TAB PO PRN (23:17)
[2024-12-08] VITALS (7 sets, daily range): BP systolic 100–135; BP diastolic 42–84; PULSE 68–91; RESP 16–20; TEMP 97.7–98.3; O2SAT 92–98
[2024-12-08 06:03] LABS: Basophils # (auto) 0 10 ^3/uL (0-0.2); Basophils % (auto) 0.3 % (0.0-2.0); Eosinophils # (auto) 0.5 10 ^3/uL (0-0.8); Hematocrit 42.1 % (36.0-46.0); Hemoglobin 14.2 g/dL (12.2-16.2); Lymphocytes # (auto) 2.3 10 ^3/uL (0.4-5.4); Lymphocytes % (auto) 38.8 % (10.0-50.0); Mean Corpuscular Hemoglobin 29.6 pg (28.0-32.0); Mean Corpuscular Hgb Conc. 33.7 g/dL (32.0-36.0); Mean Corpuscular Volume 87.8 fL (80.0-100.0); Monocytes # (auto) 0.4 10 ^3/uL (0-1.3); Neutrophils # (auto) 2.7 10 ^3/uL (1.6-8.6); Neutrophils % (auto) 44.9 % (37.0-80.0); Nucleated Red Blood Cells % 0.1 %; Platelet Count (auto) 182 10^3/uL (140-450); Red Blood Cells 4.79 10^6/uL (4.0-5.20); Red Cell Distribution Width 15.9 % (11.8-14.3); White Blood Cell 5.9 10^3/uL (4.4-10.8)
[2024-12-08 06:18] LABS: Alanine Aminotransferase 28 U/L (7-40); Albumin 3.9 g/dL (3.2-4.8); Alkaline Phosphatase 92 U/L (46-116); Anion Gap 5 (5-15); Aspartate Aminotransferase 21 U/L (13-40); BUN/Creatinine Ratio 19.4 (10.0-20.0); Bilirubin, Total 0.6 mg/dL (0.2-1.0); Blood Urea Nitrogen 12 mg/dL (9-23); Calcium 8.9 mg/dL (8.7-10.4); Carbon Dioxide 25 mmol/L (20-31); Chloride 110 mmol/L (98-107); Glucose 107 mg/dL (74-106); Potassium 4.2 mmol/L (3.5-5.1); Sodium 140 mmol/L (136-145); Total Protein 5.6 g/dL (5.7-8.2)
[2024-12-08 06:20] LABS: Urine Bacteria None Seen /hpf (None Seen)
[2024-12-08 06:37] LABS: Lipase 33 U/L (12-53)
[2024-12-08 06:39] LABS: Urine Blood Negative /uL (Negative); Urine Clarity Clear (Clear); Urine Color Yellow (Yellow); Urine Mucus FEW (None Seen); Urine Protein, UAD TRACE (Negative); Urine Specific Gravity 1.028 (1.001-1.035); Urine Squamous Epithelial Cell FEW /hpf (<5); Urine Urobilinogen 2 mg/dL (Negative); Urine WBC 3 /HPF (0-5); Urine pH 6.5 (5.0-9.0)
[2024-12-08] MEDS: PANTOPRAZOLE 40 MG/10 ML VIAL INJ IV SCH (10:14)
--- NOTE | 2024-12-08 14:12 | DVHPN2 ---
Subjective Still having pain. The morphine is not lasting long. She had BM. Not much relief with the BM Reviewed: Care Plan, H&P, Labs, Medications, Previous Orders, Radiology Changes from previous H/P or p: No Changes Objective Vitals Vital Signs Date Time Temp Pulse Resp B/P (MAP) Pulse Ox O2 Delivery O2 Flow Rate FiO2 12/08/24 11:24 74 19 132/77 12/08/24 08:10 Room Air* 0 21 12/08/24 05:15 98.0 96 98.0 Intake/Output Intake and Output 12/08/24 06:59 Intake Total 2787 ml Balance 2787 ml Intake Oral 750 ml IV Total 2037 ml # Voids 6 General Appearance: Alert, Oriented X3, Cooperative, No acute distress HEENT: Atraumatic Lungs: Clear to auscultation Cardiovascular: Regular rate Abdomen: Other (Positive tenderness in the right upper quadrant and epigastric and right flank areas) Medications Current Medications Medications Dose Ordered Sig/Chapito Route Start Time Stop Time Status Last Admin Dose Admin Ondansetron HCl 4 mg Q4HP PRN IV 12/06/24 22:30 Enoxaparin Sodium 40 mg DAILY SC 12/07/24 10:00 Morphine Sulfate 2 mg Q4HPRN PRN IV 12/07/24 01:15 12/08/24 11:24 2 MG Al Hydrox/Mg Hydrox/Simethicone 30 ml Q6HP PRN PO 12/07/24 12:15 12/07/24 14:57 30 ML Sodium Chloride 1,000 ml @ 100 mls/hr Q10H IV 12/07/24 15:30 12/08/24 04:45 100 MLS/HR Pantoprazole Sodium 40 mg DAILY IV 12/08/24 10:00 12/08/24 10:14 40 MG Trazodone HCl 50 mg HS PRN PO 12/07/24 17:00 12/07/24 23:17 50 MG Docusate Sodium 100 mg BID GT 12/08/24 22:00 UNV Laboratory Results Laboratory Tests 12/08/24 05:23 Chemistry Test 12/08/24 05:23 Albumin 3.9 g/dL (3.2-4.8) Calcium Level 8.9 mg/dL (8.7-10.4) Total Protein 5.6 g/dL (5.7-8.2) L Lipid panel Test 12/08/24 05:23 Lipase 33 U/L (12-53) LFT Test 12/08/24 05:23 Alanine Aminotransferase (ALT) 28 U/L (7-40) Alkaline Phosphatase 92 U/L (46-116) Aspartate Amino Transferase (AST) 21 U/L (13-40) Total Bilirubin 0.6 mg/dL (0.2-1.0) Urinalysis Test 12/06/24 13:38 12/08/24 06:05 Urine Yeast (Budding) Occasional /hpf (None Urine Color Yellow (Yellow) Urine Clarity Clear (Clear) Urine pH 6.5 (5.0-9.0) Urine Specific [place] 1.028 (1.001-1.035) Urine Protein Trace (Negative) H Urine Ketones Negative (Negative) Urine Blood Negative /uL (Negative) Urine Nitrite Negative (Negative) Urine Bilirubin Negative (Negative) Urine Urobilinogen 2 mg/dL (Negative) H Urine Leukocyte Esterase Trace /uL (Negative) Urine RBC 1 /hpf (0 - 4) Urine Microscopic WBC 3 /HPF (0-5) Urine Squamous Epithelial Cells Few /hpf (<5) Urine Bacteria None seen /hpf (None Seen) Urine Mucus Few (None Seen) Urine Glucose Trace mg/dL (Normal) Assessment/Plan Assessment/Plan Abdominal pain/epigastric/right upper quadrant and right flank areas Increase stool load in ascending and transverse colon Questionable proctitis Incomplete right bundle-branch block Obesity Hepatic steatosis Gallbladder sludge Diabetes Hypertension On Ozempic/could be causing side effects with the pain and fecal load Positive for amphetamine and opiates Plan: HIDA scan pending. Increase morphine to 3 mg every 3 hours p.r.n. severe pain. Keep the 2 mg for moderate pain. Keep liquid diet for now. IV antibiotics. Unstable for transfer today. Continue current plan of care with increase in morphine dose and frequency. Plan discussed with: Patient My Orders Orders - GIGI DIAS MD Procedure Category Date Status Time Ct Abd Pelvis W CT 12/07/24 Resulted Con-Oral & Iv 14:19 Sodium Chloride 0.9% PHA 12/07/24 In Process 15:30 Pantoprazole PHA 12/08/24 In Process (Protonix) 10:00 Trazodone Hcl PHA 12/07/24 In Process (Desyrel) 17:00 Docusate Sodium PHA 12/08/24 Transmitted Liquid (Colace Liquid) 22:00 Date of Service: Dec 08, 2024 Billing Provider: GIGI DAIS MD Common Visit Codes: [id number] INP/OBS CARE(HIGH) GIGI DIAS MD Dec 08, 2024 14:11
[2024-12-08] MEDS: metroNIDAZOLE 500MG/100ML 100 ML IV ONE (14:44)
[2024-12-08] MEDS: MORPHINE SULFATE 4 MG/ML SYR/VIAL IV PRN (15:38)
[2024-12-08 15:53] LABS: Erythrocyte Sedimentation Rate 1 mm/hr (0-20)
[2024-12-08] MEDS: cefTRIAXone 1GM/50ML D5W 50 ML IV ONE (15:57)
[2024-12-08] MEDS: DOCUSATE ORAL LIQUID 100 MG/10 ML UD GT SCH (21:56)
[2024-12-08] MEDS: metroNIDAZOLE 500MG/100ML 100 ML IV SCH (21:57)
[2024-12-09 05:00] VITALS: BP 147/83; PULSE 73; RESP 18; TEMP 97.6; O2SAT 93
--- NOTE | 2024-12-09 07:15 | ECG ---
[facility] Test Date: 2024-12-06 Test Time: 13:14:20 Pat Name: CANDY OT Department: ED Room: 0240 B Gender: F [employer] Poster: sendy : 1965 Requested By: TARIQ DAMON Order Number: [id number] Reading MD: Pedro Mcconnell Measurements Intervals [place] Rate: 120 P: 67 NE: 129 QRS: 83 QRSD: 115 T: 53 QT: 352 QTc: 498 Interpretive Statements Sinus tachycardia Probable left atrial enlargement Incomplete right bundle branch block Low voltage, precordial leads Baseline wander in lead(s) V1 Electronically Signed On 12-11-2024 14:01:37 PDT by Pedro Mcconnell Please click the below link to view image of tracing.
[2024-12-09 09:00] VITALS: BP 155/91; PULSE 81; RESP 20; TEMP 97.7; O2SAT 98
[2024-12-09] MEDS: cefTRIAXone 1GM/50ML D5W 50 ML IV SCH (09:50)
--- NOTE | 2024-12-09 11:11 | DVH ---
Procedure: NM NM HIDA SCAN Exam Date: 12/09/2024 07:51 AM Clinical History: EPIGASTRIC AND RUQ PAIN Comparison Study: Pain Nuclear Medicine Hepatobiliary Scan. Technique: Following the intravenous administration of 6 mCi of technetium 99m labeled Choletec multiple planar abdominal planar images were obtained in anterior projection in 5 minute intervals for45 minutes . Ri ght lateral images were obtained at 45 minutes after injection. Findings: The liver appears grossly normal in size. There is no abnormal persistence of the cardiac or blood po ol activity. There is prompt visualization of the gallbladder and excretion of activity into the smal l bowel. Impression: Unremarkable hepatobiliary study without evidence of acute cholecystitis.
[2024-12-09 13:00] VITALS: BP 129/67; PULSE 77; RESP 18; TEMP 98.6; O2SAT 96
[2024-12-09 16:56] VITALS: BP 146/85; PULSE 75; RESP 18; TEMP 97.9; O2SAT 96
[2024-12-09 20:00] VITALS: PULSE 73
[2024-12-09 21:00] VITALS: BP 142/86; PULSE 73; RESP 18; TEMP 98.5; O2SAT 96
--- NOTE | 2024-12-09 21:12 | DVHPN2 ---
Progress Note - Dictate Date Seen: Dec 09, 2024 Medical Necessity Reason Pt with a Central, PICC or Fol: No Subjective Intermittent right upper quadrant pain but patient is feeling better She is still concerned as to why she developed the right upper quadrant pain HIDA scan results were discussed with the patient Ultrasound showed mild gallbladder sludge Patient believes she may have passed something when she was having severe pain vital signs Vital Sign Date Time Temp Pulse Resp B/P (MAP) Pulse Ox O2 Delivery O2 Flow Rate FiO2 12/09/24 20:03 73 18 142/86 12/09/24 16:56 97.9 96 97.9 12/09/24 08:02 Room Air* 0 21 Total Intake and Output 12/08/24 12/08/24 12/09/24 15:00 23:00 07:00 Intake Total 2188 ml 1775 ml 550 ml Balance 2188 ml 1775 ml 550 ml medications Current Medications Medications Dose Ordered Sig/[place] Route Start Time Stop Time Status Last Admin Dose Admin Ondansetron HCl 4 mg Q4HP PRN IV 12/06/24 22:30 Enoxaparin Sodium 40 mg DAILY SC 12/07/24 10:00 Morphine Sulfate 2 mg Q4HPRN PRN IV 12/07/24 01:15 12/09/24 20:03 2 MG Al Hydrox/Mg Hydrox/Simethicone 30 ml Q6HP PRN PO 12/07/24 12:15 12/07/24 14:57 30 ML Sodium Chloride 1,000 ml @ 100 mls/hr Q10H IV 12/07/24 15:30 12/09/24 07:39 100 MLS/HR Pantoprazole Sodium 40 mg DAILY IV 12/08/24 10:00 12/09/24 09:50 40 MG Trazodone HCl 50 mg HS PRN PO 12/07/24 17:00 12/08/24 22:11 50 MG Docusate Sodium 100 mg BID GT 12/08/24 22:00 12/08/24 21:56 100 MG Morphine Sulfate 3 mg Q3HPRN PRN IV 12/08/24 14:15 12/09/24 16:33 3 MG Ceftriaxone Sodium 50 ml @ 100 mls/hr DAILY@09 IV 12/09/24 09:00 12/09/24 09:50 100 MLS/HR Metronidazole 100 ml @ 100 mls/hr Q8HR IV 12/08/24 22:00 12/09/24 13:30 100 MLS/HR objective General: Alert and oriented x4 no distress HEENT: NC/AT EOMI PERRLA O/P clear Regular rate and rhythm Abdomen: Soft mild right upper quadrant tenderness to palpation Extremity: No clubbing cyanosis or edema laboratory and microbiology Laboratory Tests 12/08/24 05:23 Test 12/08/24 05:23 Range/Units Serum Glucose 107 H 74-106 mg/dL CT SCAN ABD PELVIS IMPRESSION: Mild distal rectal wall thickening which may be due to inadequate distention /proctitis. Appendix measures up to 8 mm without adjacent inflammatory reaction. Early acute appendicitis can not be excluded. Mild hepatomegaly. Bilateral renal cysts with additional subcentimeter hypodense right renal lesion that is too small to characterize. Sigmoid diverticulosis without diverticulitis. Small to moderate size fat containing umbilical hernia with small sized fat containing infraumbilical hernia. Problems(with codes): (1) Polysubstance abuse (2) Obesity, morbid (3) Intractable abdominal pain (4) Gallbladder sludge Prognosis Plan Patient denies marijuana or amphetamines although her toxicology screen was positive for amphetamines Currently the patient appears to be stable from a GI point of view and no clear- cut source of pain identified other than the passage of gallbladder sludge Advance diet as tolerated, supportive care Continue to monitor labs Bentyl 10 mg p.o. twice a day as needed for abdominal pain Protonix 40 mg p.o. daily Outpatient follow up with GI Services for elective panendoscopy I will follow pt with u If symptoms persist consider MRI/MRCP Dietary Evaluation Review Recommendations by RD: Dietary education by RD Comments: 1) Encourage optimal PO intake. Continue Zofran PRN 2) Advance to 60g CCHO cardiac diet when medically feasible, pending CASH APPLICATION REPRESENTATIVE approval 3) Refer to outpatient RD/[facility] for diabetes education and weight management 4) Follow-up with gastroenterology 5) Refer to social media editor for polysubstance abuse 6) Continue to monitor I&O, labs, and skin integrity Expected Outcomes/Goals: 1) appetite and labs to improve 2) GI symptoms to resolve 3) diet to advance 4) f/u in 2-3 days Plan discussed with: Patient JUSTYNA ESTRADA MD Dec 09, 2024 21:12
--- NOTE | 2024-12-09 21:14 | DVHPN2 ---
Subjective still having RUQ pain Reviewed: Care Plan, H&P, Labs, Medications, Previous Orders, Radiology Changes from previous H/P or p: No Changes Objective Vitals Vital Signs Date Time Temp Pulse Resp B/P (MAP) Pulse Ox O2 Delivery O2 Flow Rate FiO2 12/09/24 21:00 98.5 73 18 142/86 (104) 96 98.5 12/09/24 08:02 Room Air* 0 21 Intake/Output Intake and Output 12/09/24 07:00 Intake Total 4513 ml Balance 4513 ml Intake Oral 2563 ml IV Total 1950 ml # Voids 13 # Bowel Movements 3 General Appearance: Alert, Oriented X3, Cooperative, No acute distress HEENT: Atraumatic Lungs: Clear to auscultation Cardiovascular: Regular rate Abdomen: Other (Positive tenderness in the right upper quadrant and epigastric and right flank areas) Medications Current Medications Medications Dose Ordered Sig/[place] Route Start Time Stop Time Status Last Admin Dose Admin Ondansetron HCl 4 mg Q4HP PRN IV 12/06/24 22:30 Enoxaparin Sodium 40 mg DAILY SC 12/07/24 10:00 Morphine Sulfate 2 mg Q4HPRN PRN IV 12/07/24 01:15 12/09/24 20:03 2 MG Al Hydrox/Mg Hydrox/Simethicone 30 ml Q6HP PRN PO 12/07/24 12:15 12/07/24 14:57 30 ML Sodium Chloride 1,000 ml @ 100 mls/hr Q10H IV 12/07/24 15:30 12/09/24 07:39 100 MLS/HR Pantoprazole Sodium 40 mg DAILY IV 12/08/24 10:00 12/09/24 09:50 40 MG Trazodone HCl 50 mg HS PRN PO 12/07/24 17:00 12/08/24 22:11 50 MG Docusate Sodium 100 mg BID GT 12/08/24 22:00 12/08/24 21:56 100 MG Morphine Sulfate 3 mg Q3HPRN PRN IV 12/08/24 14:15 12/09/24 16:33 3 MG Ceftriaxone Sodium 50 ml @ 100 mls/hr DAILY@09 IV 12/09/24 09:00 12/09/24 09:50 100 MLS/HR Metronidazole 100 ml @ 100 mls/hr Q8HR IV 12/08/24 22:00 12/09/24 13:30 100 MLS/HR Laboratory Results Laboratory Tests 12/08/24 05:23 Urinalysis Test 12/06/24 13:38 12/08/24 06:05 Urine Yeast (Budding) Occasional /hpf (None Urine Color Yellow (Yellow) Urine Clarity Clear (Clear) Urine pH 6.5 (5.0-9.0) Urine Specific [place] 1.028 (1.001-1.035) Urine Protein Trace (Negative) H Urine Ketones Negative (Negative) Urine Blood Negative /uL (Negative) Urine Nitrite Negative (Negative) Urine Bilirubin Negative (Negative) Urine Urobilinogen 2 mg/dL (Negative) H Urine Leukocyte Esterase Trace /uL (Negative) Urine RBC 1 /hpf (0 - 4) Urine Microscopic WBC 3 /HPF (0-5) Urine Squamous Epithelial Cells Few /hpf (<5) Urine Bacteria None seen /hpf (None Seen) Urine Mucus Few (None Seen) Urine Glucose Trace mg/dL (Normal) Assessment/Plan Assessment/Plan Abdominal pain/epigastric/right upper quadrant and right flank areas Increase stool load in ascending and transverse colon Questionable proctitis Incomplete right bundle-branch block Obesity Hepatic steatosis Gallbladder sludge Diabetes Hypertension On Ozempic/could be causing side effects with the pain and fecal load Positive for amphetamine and opiates Plan: HIDA scan pending. Increase morphine to 3 mg every 3 hours p.r.n. severe pain. Keep the 2 mg for moderate pain. Keep liquid diet for now. IV antibiotics. Unstable for transfer today. Continue current plan of care with increase in morphine dose and frequency. Plan discussed with: Patient My Orders Orders - EVITA BRIGHT MD Procedure Category Date Status Time Consistent DIET 12/09/24 Transmitted Carb([facility])Diabetes Lunch Date of Service: Dec 09, 2024 Billing Provider: EVITA BRIGHT MD Common Visit Codes: [id number] INP/OBS CARE([facility]) EVITA BRIGHT MD Dec 09, 2024 21:14
[2024-12-10 01:00] VITALS: BP 128/72; PULSE 69; RESP 17; TEMP 97.3; O2SAT 95
[2024-12-10 05:00] VITALS: BP 155/86; PULSE 70; RESP 17; TEMP 97.8; O2SAT 98
[2024-12-10 07:43] VITALS: RESP 20
[2024-12-10 09:00] VITALS: BP 145/87; PULSE 64; RESP 20; TEMP 98.1; O2SAT 96
[2024-12-10] MEDS ORDERED: HYDR-4798 PO (12:23)
[2024-12-10 13:00] VITALS: BP 135/79; PULSE 60; RESP 20; TEMP 98.5; O2SAT 96
[2024-12-10 14:12] VITALS: TEMP 36.9
== END 2024-12-10 14:59 | disposition home or self-care (01) | DRG 446 ==
LOC: ER 12:42 → EDBD 12:42 → OVERFLOW 22:23 → EAST 23:33
PROVIDERS: ADMIT Hospitalist; ATTEND Hospitalist
DX: K82.8 Other specified diseases of gallbladder (principal); K62.89 Other specified diseases of anus and rectum; K76.0 Fatty (change of) liver, not elsewhere classified; I45.10 Unspecified right bundle-branch block; E11.9 Type 2 diabetes mellitus without complications; I10 Essential (primary) hypertension; E66.01 Morbid (severe) obesity due to excess calories; E78.5 Hyperlipidemia, unspecified; F17.210 Nicotine dependence, cigarettes, uncomplicated; R16.0 Hepatomegaly, not elsewhere classified; F15.10 Other stimulant abuse, uncomplicated; F11.10 Opioid abuse, uncomplicated; K21.9 Gastro-esophageal reflux disease without esophagitis; Z79.899 Other long term (current) drug therapy; Z79.4 Long term (current) use of insulin; Z79.84 Long term (current) use of oral hypoglycemic drugs; Z68.38 Body mass index [BMI] 38.0-38.9, adult; Z90.710 Acquired absence of both cervix and uterus
CPT/HCPCS: 36415; 74177; 76705; 78226; 80048; 80053; 80307; 81001; 82962; 83036; 83690; 84484; 85025; 85652; 86141; 93005; 96361; 96374; 96375; G0378; J1885; J2470; J3490